=== PATIENT | female | born 1980 | race Caucasian/White ===

== ENCOUNTER → 2018-02-23 | Outpatient (CLI) | payer OTHER ==
--- NOTE | 2018-02-23 11:54 | RADIOLOGY REPORT (SQ) ---
EXAM DESCRIPTION: U/S RETROPERITON (RENAL/AORTA) COMPLETED DATE/TIME: 02/23/2018 9:18 am REASON FOR STUDY: BEADED APPEARANCE OF THE BILATERAL RENAL ARTERIES COMPARISON: None. TECHNIQUE: Dynamic and static grayscale images acquired of the kidneys and bladder and recorded on P ACS. Additional selected color Doppler and spectral images recorded. LIMITATIONS: None. FINDINGS: RIGHT KIDNEY: The right kidney measures 10.2 cm in length. Normal echogenicity. No solid or suspicious masses. No hydronephrosis. No calcifications. LEFT KIDNEY: The left kidney measures 13.9 cm in length, slightly larger in size than the right. No rmal echogenicity. No solid or suspicious masses. No hydronephrosis. No calcifications. BLADDER: No masses. OTHER FINDINGS: No other significant finding. IMPRESSION: 1. The right kidney is slightly smaller in size than the left. 2. No evidence of hydronephrosis. TECHNICAL DOCUMENTATION: JOB ID: [id number] [employer]- All Rights Reserved Reading location - IP/workstation name: [email or web address]
--- NOTE | 2018-02-23 15:17 | RADIOLOGY REPORT (SQ) ---
EXAM DESCRIPTION: U/S LTD DUPLEX ART/CHANI FLOW COMPLETED DATE/TIME: 02/23/2018 9:18 am REASON FOR STUDY: BEADED APPEARANCE OF THE BILATERAL RENAL ARTERIES COMPARISON: Report of a prior CT from [facility] dated 08/07/2017. TECHNIQUE: Realtime and static grayscale images acquired. Selected color Doppler, velocities and spe ctral images recorded. LIMITATIONS: None. FINDINGS: RIGHT KIDNEY: RENAL ARTERY VELOCITIES: 79 cm/sec. Segmental artery velocity 49 cm/sec. RENAL VEIN: Color doppler flow present, patent. VELOCITY RATIO: 0.67. Normal waveforms. KIDNEY: 10.2 cm. No significant pathology. LEFT KIDNEY: RENAL ARTERY VELOCITIES: 91 cm/sec. Segmental artery velocity 62 cm/sec. RENAL VEIN: Color doppler flow present, patent. VELOCITY RATIO: 0.78. Normal waveforms. KIDNEY: 13.97 No significant pathology. BLADDER: Normal. OTHER: No other significant finding. IMPRESSION: 1. NO DOPPLER EVIDENCE OF HEMODYNAMICALLY SIGNIFICANT RENAL ARTERY STENOSIS. 2. NO RENAL ARTERY ANEURYSM IDENTIFIED ON THE LEFT SIDE ALTHOUGH INCOMPLETE VISUALIZATION. IF THERE IS STRONG CLINICAL SUSPICION, MAY REQUIRE CTA OF THE RENAL ARTERIES. 3. ASYMMETRIC RENAL SIZES. THE RIGHT KIDNEY IS SMALLER THAN THE LEFT KIDNEY. COMMENT: NORMAL RENAL ARTERY/AORTA VELOCITY RATIO IS LESS THAN OR EQUAL TO 3.5. TECHNICAL DOCUMENTATION: JOB ID: [id number] [employer]- All Rights Reserved Reading location - IP/workstation name: [email or web address]
== END ==
LOC: RAD 08:06
PROVIDERS: ATTEND Nurse Practitioner Family
DX: I77.3 Arterial fibromuscular dysplasia (principal)
CPT/HCPCS: 76770; 93976

== ENCOUNTER → 2019-11-02 | Outpatient (CLI) | payer OTHER ==
--- NOTE | 2019-11-02 15:26 | RADIOLOGY REPORT (SQ) ---
EXAM DESCRIPTION: DUPLEX ART/CHANI FLOW COMPLETE IMAGES COMPLETED DATE/TIME: 11/02/2019 12:05 pm REASON FOR STUDY: NITHIN (I70.1) COMPARISON: None. TECHNIQUE: Realtime and static grayscale images acquired. Selected color Doppler, velocities and spe ctral images recorded. LIMITATIONS: None. FINDINGS: RIGHT KIDNEY: RENAL ARTERY VELOCITIES: 43.8 cm/sec. Segmental artery velocity 44.8 cm/sec. RENAL VEIN: Color doppler flow present, patent. VELOCITY RATIO: 0.46. Normal waveforms. KIDNEY: Normal size. No significant pathology. LEFT KIDNEY: RENAL ARTERY VELOCITIES: 36.9 cm/sec. Segmental artery velocity 68.7 cm/sec. RENAL VEIN: Color doppler flow present, patent. VELOCITY RATIO: 0.39. Normal waveforms. KIDNEY: Normal size. No significant pathology. BLADDER: Normal. OTHER: No other significant finding. IMPRESSION: NO DOPPLER EVIDENCE OF HEMODYNAMICALLY SIGNIFICANT RENAL ARTERY STENOSIS. COMMENT: NORMAL RENAL ARTERY/AORTA VELOCITY RATIO IS LESS THAN OR EQUAL TO 3.5. TECHNICAL DOCUMENTATION: JOB ID: [id number] [employer]- All Rights Reserved Reading location - IP/workstation name: [email or web address]
== END ==
LOC: RAD 08:01
PROVIDERS: ATTEND Nurse Practitioner Family
DX: I70.1 Atherosclerosis of renal artery (principal)
CPT/HCPCS: 93975